=== PATIENT | male | born 1995 | race Caucasian/White ===

== ENCOUNTER → 2019-11-06 14:51 | Outpatient (BNVA) | payer SELFPAY | PROVIDERS: Family Provider Pediatrics Adolescent Medicine; Visit Provider Nurse Practitioner | DX: R05 Cough (principal); R68.83 Chills (without fever) | CPT/HCPCS: 87804 ==

== ENCOUNTER → 2020-06-15 11:22 | Outpatient (BNVA) | payer OTHER, SELFPAY | PROVIDERS: Family Provider Pediatrics Adolescent Medicine; Visit Provider Nurse Practitioner Family | DX: Z20.828 Contact with and (suspected) exposure to other viral communicable diseases (principal) | CPT/HCPCS: 87635 ==